=== PATIENT | male | born 1970 | race Caucasian/White ===

== ENCOUNTER 2022-09-03 10:16 | Outpatient (CLI) | payer OTHER, SELFPAY ==
[2022-09-03 11:43] LABS: Kit Draw Collected
== END 2022-09-03 10:17 | disposition home or self-care (01) ==
LOC: ANHGOSHLAB 10:18
PROVIDERS: PCP Family Medicine; Visit Provider Family Medicine
DX: E78.5 Hyperlipidemia, unspecified (principal); Z79.899 Other long term (current) drug therapy
CPT/HCPCS: 36415

== ENCOUNTER 2024-09-30 12:07 | Observation (INO) | payer OTHER, SELFPAY ==
[2024-09-30] VITALS (15 sets, daily range): BP systolic 108–149; BP diastolic 64–91; PULSE 50–159; RESP 18–20; TEMP 36.8–36.9; O2SAT 97–100; BMI 26.6
--- NOTE | ~2024-09-30 | XR_ITS ---
Portable chest x-ray Comparison: None Clinical History: Chest pain Findings: Lungs are clear, without focal consolidation or pleural effusion. Cardiomediastinal silho uette is unremarkable. Bones and soft tissues are unremarkable. Impression: Normal chest. Reviewed, dictated and finalized at location . Impression: Normal chest.
--- OUTSIDE RECORDS SUMMARY | 2024-09-30 12:09 | XMS_ITS | Referral Summary ---
Author Organization [facility] Address [address] [place] [address] Care Team Providers Care Medical Apparatus Model Maker Name Role Phone Unavailable Primary Care Provider Unavailabl e Source Comments [facility],non-owned Affiliates and Associated Physician Practices is amultiple site organization consisting of ambulatory clinics and hospital sitesin [place], [place], [place] and [place]. This disclosure is being madepursuant to the Care Everywhere program and may not contain all information available regarding this patient. Last updated 18.[facility] Transaction [employer] Social History Tobacco Use Types Packs/Day Years Used Date Smoking Tobacco: Never Assessed Sex and Gender Information Value Date Recorded Sex Assigned at Not on file Gender Identity Not on file Sexual Orientation Not on file Plan of Treatment Not on file
--- OUTSIDE RECORDS SUMMARY | 2024-09-30 12:09 | XMS_ITS | Data Portability ---
Author Organization [place] [facility], [facility], [facility] Address [address] [place] [address] Assessment No assessment recorded. Plan of Treatment Reminders Order Date Submit Date Provider Last Modified By Organization Details Last Modified Time Details Appointments None recorded. Lab None recorded. Referral None recorded. Procedures None recorded. Surgeries None recorded. Imaging None recorded. Medication Orders doxycycline hyclate 100 mg tablet 2022 023 LAURA [facility] [id number], [address] [place] [address], [address], 13:14:31 Patient TargetsNo targets recorded. Patient Instructions Encounter Date Encounter Id Patient Instructions Last Modified By Organization Details Last Modified Time 12/27/2022 [id number] Discharge Instructions Not available 12/27/2022 13:14:30 cuts closed with stitches: care instructions Not available 12/27/2022 13:14:30 Have sutures removed in 10 days. Not available 12/27/2022 13:14:15 Reason for Referral None Reported. Problems Name Problem SNOMED Code Status Onset Date Resolution Date Notes Provider Name and Address Organization Details Recorded Time Laceration - injury [id number] Active 2022 right calf. cut it on a metal door of a pontoon boat ARABELLA Tabares [facility], [facility] 13:11:00 Problem Notes None recorded. Procedures Surgical History Date Name Laterality Status Provider Name and Address Organization Details Recorded Time Laceration Repair1 [place] [address], [place], [address], [facility] 12/27/2022 13:34:33 Imaging Results None recorded. Procedure Notes None recorded. Medical Equipment None Reported. Allergies No known drug allergies Medications Name Sig Start Date Stop Date Status Note LastModified by Organization Details LastModified Time simvastatin 5 mg tablet TAKE 1 TABLET BY MOUTH DAILY active Not Available Not Available No t Available methylprednis olone 4 mg tablets in a dose pack 12/27 completed Not Available Not Available Not Available doxycycline hyclate 100 mg tablet TAKE ONE TABLET BY MOUTH TWICE A DAY FOR 7 DAYS active Not Available Not Available No t Available Vitals Date Recorded Heart rate Respiratory rate Oxygen saturation Oxygen saturation in Arterial blood by Pulse oximetry Body temperature Body height Body weight Systolic blood pressure Diastolic blood pressure Provider Name and Address Organization Details Last Updated DateTime 61 /min 17 /min 99 % 99 % 97.9 [degF] 175.26 cm 33903.5 9 g 146 mm[Hg] 69 mm[Hg] ARABELLA Tabares [facility] 13:10:00 Social History Question Answer Notes LastModified by Organizat ion Details LastModified Time Tobacco Smoking Status Never Smoker ARABELLA [facility]ares [facility] 12/27/2022 13:11:08 In The 14 Days Before Symptom Onset, Have You Had Close Contact With A Laboratory-confirm ed COVID-19 While That Case Was Ill? No Information n ot available 12/27/2022 In The 14 Days Before Symptom Onset, Have You Had Close Contact With A Person Who Is Under Investigation For COVID-19 While That Person Was Ill? No Information not available 12/27/2022 Have You Been To An Area Known To Be High Risk For COVID-19? No Information not available 12/27/2022 Alcohol Use Occasional Information n ot available 12/27/2022 Are You Passively Exposed To Smoke? No Information no t available 12/27/2022 Do You Or Have You Ever Used Any Other Forms Of Tobacco Or Nicotine? No Information not available 12/27/2022 Sex: Unknown Functional Status None recorded. Mental Status None recorded. Family History Nothing Reported. Medical History Condition Response High Cholesterol Y Past Encounters Encounter ID Performer Location Encounter Start Date Encounter Closed Date Diagnosis/Indication Diagnosis SNOMED-CT Code Diagnosis ICD10 Code Diagnosis Note [id number] Gabriele Gillespie MD [facility] [address] [place] [address] 12/27/2022 12:51:16 12/27/2022 13:38:12 Laceration of right lower leg [id number] S81.811A Health Concerns Section Related Observation LastModified by Organization Detai ls LastModified Time None Recorded Concern Status LastModified by Organization Details LastModified Time None Recorded Advance Directives Directive None Recorded Payers Encounter Date Sequence Insurance Name Policy Number Policy Car Covered Member ID Car Member ID Guarantor Name 12/27/2022 1 [facility] [id number] [facility] Notes Date Note Type Note Provider Name and Address Organization Details Recorded Time 12/27/2022 text/html Trauma/InjuryRep ort ed bypatient.Location: right gastroc region Onset/ Duration:1 hour(s) ago Timing:episodic; abrupt onset Mechanism of injurycut on pontoon flange Site of injurypatient was at other at time of injury Post-Traumatic Changes:no changes after event Context:started after injury ; no heavy alcohol consumption; no recreational drug use Quality:open wound Severity:no loss of consciousness; no difficulty breathing; moderate Alleviating factors:nothing gives relief Aggravating factors:nothing makes it worseNotes:Last Td was within 3 [place] [address], [place], [address], [facility], [facility] 12/27/2022 13:34:52
--- OUTSIDE RECORDS SUMMARY | 2024-09-30 12:09 | XMS_ITS | Encounter Summary ---
Author Organization [facility] Address [address] [facility] [facility] [place] [address] Care Team Providers Care Superintendent Renting Managing Name Role Phone Unavailable Primary Care Provider Unavailabl e Encounter Details Date Type Department Care Team (Late st Contact Info) Description 06/08/2019 Lab Requisition [facility] [address] [facility] [place] [address] Jolynn Cintron MD [address] [facility] [address] [place] [address] Social History Tobacco Use Types Packs/Day Years Used Date Smoking Tobacco: Never Assessed Sex and Gender Information Value Date Recorded Sex Assigned at Not on file Gender Identity Not on file Sexual Orientation Not on file documented as of this encounter Plan of Treatment Not on file documented as of this encounter Visit Diagnoses Not on filedocumented in this encounter
--- OUTSIDE RECORDS SUMMARY | 2024-09-30 12:09 | XMS_ITS | Patient Health Summary ---
Author Organization [facility] Address [address] [place] [address] Care Team Providers Care Alkylation Operator Name Role Phone Unavailable Primary Care Provider Unavailabl e Note from [email or web address],non-owned Affiliates and Associated Physician Practices is amultiple site organization consisting of ambulatory clinics and hospital sitesin [place], [place], [place] and [place]. This disclosure is being madepursuant to the Care Everywhere program and may not contain all information available regarding this patient. Last updated 18.[email or web address] Social History Tobacco Use Types Packs/Day Years Used Date Smoking Tobacco: Never Assessed Sex and Gender Information Value Date Recorded Sex Assigned at Not on file Gender Identity Not on file Sexual Orientation Not on file Procedures * DERMATOPATH TECHNICAL REPORT(Performed 06/08/2019) Results * DERMATOPATH TECHNICAL REPORT (06/08/2019 12:00 AM FIBERGLASS TUBE MOLDER) Case Report Dermatopathology Report Case: [id number] Authorizing Provider: Jolynn Cintron MD Collected: 06/08/2019 12:00 AM Ordering Location: [facility] D[facility] Lab Received: 06/08/2019 12:36 PM Pathologist: Jodie Mehta MD Specimen: Skin, left chest 12:45 PM [facility] DERMATOPATHOLOGY LABORATORY Addendum 1 At the request of the diagnosing physician, the technical component for MART-1/Melan A was performed by [facility] Dermatopathology Laboratory. 12:45 PM [facility] DERMATOPATHOLOGY LABORATORY Addendum electronically signed by Jodie Mehta MD on 06/12/2019 at 12:45 PM Clinical History R/O BCC, AK, irritated, non-healing. 9 12:45 PM [facility] DERMATOPATHOLOGY LABORATORY Gross Description Specimen A: Received is one formalin filled container labeled with the patient's name and designated left chest. The specimen consists of a shave measuring [id number]. Jar 0. [facility] Dermatopathology Laboratory performed the technical component only. 12:45 PM [facility] DERMATOPATHOLOGY LABORATORY Embedded Images 12:45 PM [facility] DERMATOPATHOLOGY LABORATORY DISCLAIMER An external and internal positive and negative controls are appropriate for the histochemical, immunohistochemical and immunofluorescence stain(s) in this case (if any), except where stated explicitly. The performance characteristics of the stain(s) cited in this report were developed and its performance characteristic determined by the Dermatopathology Laboratory at [facility], directed by Dr. June Mehta. These tests need not be, and therefore are not, approved by the [place] Food and Drug Administration. The tests are used for clinical purposes. 12:45 PM [facility] DERMATOPATHOLOGY LABORATORY Pathology/Cytolog y TISSUE SPECIMEN FROM SKIN / Unknown 06/08/2019 06/08/2019 12:36 PM FIBERGLASS TUBE MOLDER Jolynn Cintron MD LAB - PATHOLOGY/CYT OLOGY ORDERABLES DERMATOPATHOLOGY LABORATORY [facility] - Department of Dermatology [facility] [facility] [address] 5th Floor Lab B [place], [place] [id number] [place] [address]
--- OUTSIDE RECORDS SUMMARY | 2024-09-30 12:10 | XMS_ITS | Clinical Summary ---
Author Organization [facility] Address [address] [place] [address] Care Team Providers Care Instrumentation And Controls Technician Name Role Phone Unavailable Primary Care Provider Unavailabl e Source Comments [facility],non-owned Affiliates and Associated Physician Practices is amultiple site organization consisting of ambulatory clinics and hospital sitesin [place], [place], [place] and [place]. This disclosure is being madepursuant to the Care Everywhere program and may not contain all information available regarding this patient. Last updated 18.[facility] Social History Tobacco Use Types Packs/Day Years Used Date Smoking Tobacco: Never Assessed Sex and Gender Information Value Date Recorded Sex Assigned at Not on file Gender Identity Not on file Sexual Orientation Not on file Plan of Treatment Health Maintenance Due Date Last Done Comments COLOGUARD (AGES 45-75) - COL ON CA SCREENING 1969 COLON MONITORING 1969 COLONOSCOPY - COLON CA SCREENING 1969 CT COLONOGRAPHY - COLON CA SCREENING 1969 Colorectal Cancer Screening 1969 FIT - COLON CA SCREENING 1969 FLEX SIG - COLON CA SCREENING 1969 LIPID TESTING 1969 HIV SCREENING 02/06/1984 HEPATITIS C SCREENING 02/01/1987 DTAP/TDAP/TD VACCINES (1 - Tdap) 02/06/1988 HEPATITIS B VACCINE (1 of 3 - 19+ 3-dose series) 02/06/1988 PNEUMOCOCCAL VACCINE 50+ (1 of 1 - PCV) 2019 ZOSTER VACCINE (1 of 2) 2019 COVID-19 VACCINE ( - 2023-2 5 season) 2024 INFLUENZA VACCINE (#1) 2024 DEPRESSION SCREENING 07/25/2024 HIB VACCINE Aged Out No longer eligi ble based on patient's age to complete this topic HPV VACCINE Aged Out No longer eligi ble based on patient's age to complete this topic MENINGOCOCCAL (Group B) VACCINE Aged Out No longer eligible based on patient's age to complete this topic MENINGOCOCCAL VACCINE Aged Out No stevenson onofre eligible based on patient's age to complete this topic PNEUMOCOCCAL VACCINE Aged Out No long er eligible based on patient's age to complete this topic
--- OUTSIDE RECORDS SUMMARY | 2024-09-30 12:10 | XMS_ITS | Encounter Summary ---
Author Organization [facility] Address [address] [place] [address] Care Team Providers Care New Car Inspector Name Role Phone Unavailable Primary Care Provider Unavailabl e Encounter Details Date Type Department Care Team (Late st Contact Info) Description 06/08/2019 Lab Requisition [facility] Lab [address] [facility] [place] [id number] Jolynn Cintron MD [address] [facility] [address] [place] [address] Social History Tobacco Use Types Packs/Day Years Used Date Smoking Tobacco: Never Assessed Sex and Gender Information Value Date Recorded Sex Assigned at Not on file Gender Identity Not on file Sexual Orientation Not on file documented as of this encounter Plan of Treatment Not on file documented as of this encounter Procedures Procedure Name Priority Date/Time Associated Diagnosis Comments DERMATOPATH TECHNICAL REPORT Routine 06/08/2019 12:00 AM FRAME COVERER documented in this encounter Results * DERMATOPATH TECHNICAL REPORT (06/08/2019 12:00 AM FRAME COVERER) Case Report Dermatopathology Report Case: [id number] Authorizing Provider: Jolynn Cintron MD Collected: 06/08/2019 12:00 AM Ordering Location: [facility] Lab Received: 06/08/2019 12:36 PM Pathologist: Jodie Mehta MD Specimen: Skin, left chest 9 12:45 PM [facility] DERMATOPATHOLOGY LABORATORY Addendum 1 At the request of the diagnosing physician, the technical component for MART-1/Melan A was performed by [facility] Dermatopathology Laboratory. 9 12:45 PM [facility] DERMATOPATHOLOGY LABORATORY Addendum electronically signed by Jodie Mehta MD on 06/12/2019 at 12:45 PM Clinical History R/O BCC, AK, irritated, non-healing. 12:45 PM [facility] DERMATOPATHOLOGY LABORATORY Gross Description Specimen A: Received is one formalin filled container labeled with the patient's name and designated left chest. The specimen consists of a shave measuring [id number]. Jar 0. [facility] Dermatopathology Laboratory performed the technical component only. 12:45 PM [facility] DERMATOPATHOLOGY LABORATORY Embedded Images 12:45 PM [facility] DERMATOPATHOLOGY LABORATORY DISCLAIMER An external and internal positive and negative controls are appropriate for the histochemical, immunohistochemical and immunofluorescence stain(s) in this case (if any), except where stated explicitly. The performance characteristics of the stain(s) cited in this report were developed and its performance characteristic determined by the Dermatopathology Laboratory at [facility], directed by Dr. June Mehta. These tests need not be, and therefore are not, approved by the [place] Food and Drug Administration. The tests are used for clinical purposes. 12:45 PM [facility] DERMATOPATHOLOGY LABORATORY Pathology/Cytolog y TISSUE SPECIMEN FROM SKIN / Unknown 06/08/2019 06/08/2019 12:36 PM FRAME COVERER Jolynn Cintron MD LAB - PATHOLOGY/CYT OLOGY ORDERABLES DERMATOPATHOLOGY LABORATORY [facility] - Department of Dermatology [address] [place] [address], 5th [place] [address], [facility] [phone] documented in this encounter Visit Diagnoses Not on filedocumented in this encounter
--- NOTE | 2024-09-30 12:11 | ECG_ITS ---
Test Date: 2024-09-30 12:14:52 Measurements Intervals Shipman Rate: 157 P: 0 WA: 0 QRS: 69 QRSD: 75 T: 39 QT: 261 QTc: 422 Interpretive Statements ATRIAL FIBRILLATION WITH RAPID VENTRICULAR RESPONSE POSSIBLE RIGHT VENTRICULAR CONDUCTION DELAY [RSR (QR) IN V1/V2] MODERATE ST DEPRESSION [0.05+ mV ST DEPRESSION] CRITICAL TEST RESULT No previous ECG available for comparison Electronically Signed On 10-01-2024 11:12:24 CDT by Trent Gao M.D.
--- NOTE | 2024-09-30 12:21 | ED.CHESTPAIN ---
HPI - Chest Pain General Chief Complaint: Chest Pain Stated Complaint: Fluttering in chest, feeling weird Time Seen by Provider: 09/30/24 12:20 Source: patient Mode of arrival: ambulatory Limitations: no limitations History of Present Illness HPI narrative: 54 years old white male came to the ED with fluttery feeling in the chest started this morning. History of hyperlipidemia, drink alcohol only over the weekend, denies drug use or abuse. Patient reports shortness of breath with exertion. He denies any fever, chills, nausea vomiting, chest pain, back pain or abdominal pain Related Data Allergies Allergy/AdvReac Type Severity Reaction Status Date / Time No Known Allergies Allergy Verified 09/30/24 12:08 Review of Systems Review of Systems: All systems reviewed & are unremarkable except as noted in HPI and below PMFSH Family History Family History Other Family history of genetic disorder No family history of cardiovascular disease Social History Social History Smoking status: Never smoker Alcohol intake: current Drinks per week: 6 Alcohol use details: Socially on weekends Substance use type: does not use Lack of Transportation: No Lack of Food: Never True Current Housing: I Have Housing Concerned About Future Housing: No Difficulty Paying Gas/Electric Bills: No Difficulty Paying for Meds: No Currently Unemployed: No Education: Bachelor's Degree Difficulty w/ Childcare or Family Care: No Living arrangements: with family Occupation/Education: occupation Additional occupation/education comments: Physical Therapist Exam Narrative: General appearance: Well-developed, well-nourished Skin: Normal color Head: Normocephalic, nontraumatic Eyes: Clear conjunctiva ENT: Oropharynx normal, ears normal, nose normal Neck: Supple, nontender Chest and respiratory: Airway patent, no respiratory distress, no accessory muscle use Heart: Tachycardia, irregular irregularity Abdomen: Soft, nontender, no organomegaly, quiet bowel sounds Vascular: Normal peripheral pulses, normal capillary refill. Musculoskeletal: Normal range of motion, nontender back Neurologic: Alert and oriented ?3, DRAPERY COUNSELOR is normal as tested, no gross motor deficit Course Vital Signs Vital signs: Vital Signs Temperature 36.9 C 09/30/24 12:09 Pulse Rate 142 H 09/30/24 12:09 Respiratory Rate 18 09/30/24 12:09 Blood Pressure 149/90 H 09/30/24 12:09 Pulse Oximetry 100 09/30/24 12:09 Temperature 36.9 C 09/30/24 12:09 Pulse Rate 124 H 09/30/24 12:40 Respiratory Rate 19 09/30/24 12:40 Blood Pressure 117/85 09/30/24 12:40 Pulse Oximetry 98 09/30/24 12:40 Oxygen Delivery Room Air 09/30/24 12:19 MDM - Chest Pain MDM Narrative Medical decision making narrative: Patient presents with new onset AFib with RVR Vital signs showing heart rate of 142 irregular irregularity Physical examination cleaner assistant was tachycardia otherwise insignificant Differential diagnosis AFib with RVR secondary to extra caffeine, stress, lack of sleep, valvular abnormality, hyperthyroidism. Less likely coronary artery disease Blood workup today includes CBC, CMP, troponin, BNP, TSH showed no acute abnormalities CHEST X-RAY SHOWED NO ACUTE ABNORMALITIES EKG ON ARRIVAL SHOWED AFIB WITH RVR PATIENT STARTED ON CARDIZEM BOLUS AND DRIP, LOVENOX, ADMIT TO HOSPITALIST Differential Diagnosis Differential diagnosis: Likely other ( ABOVE) Medical Records Data Attestation: I reviewed the patient's medical records. Lab Data Attestation: I reviewed the patient's lab results. 09/30/24 12:21 09/30/24 12:21 Labs: Lab Results 09/30/24 Range/Units 12:21 WBC 5.4 (4.5-10.0) K/mm3 RBC 4.62 (4.6-6.20) M/mm3 Hgb 15.0 (14.0-18.0) g/dL Hct 45.5 (42.0-52.0) % MCV 98.5 (80-100) fl MCH 32.5 (26-34) pg MCHC 33.0 (32-36) g/dl RDW 12.3 (11.5-14.5) % Plt Count 254 (150-375) k/mm3 MPV 9.4 (7.4-10.4) fl Immature Gran % (Auto) 0.2 (0-0.5) % Neut % (Auto) 45.2 L (45.5-73.1) % Lymph % (Auto) 41.5 (18.3-44.2) % Atlantic % (Auto) 9.9 H (2.6-8.5) % Eos % (Auto) 2.1 (0-4.4) % Baso % (Auto) 1.1 (0.2-1.2) % Lymph # (Auto) 2.22 (0.9-3.2) K/mm3 Atlantic # (Auto) 0.5 (0.1-0.6) K/mm3 Eos # (Auto) 0.1 (0-0.3) K/mm3 Baso # (Auto) 0.1 (0.0-0.1) K/mm3 Abs Immat Gran (auto) 0.01 (0.00-0.031) K/mm3 Absolute Neuts (auto) 2.4 (1.3-6.7) K/mm3 Absolute Nucleated RBC 0.000 (0.0-0.012) K/mm3 Nucleated RBC % 0.0 (0.0-0.2) % PT 13.1 (11.1-14.7) Seconds INR 1.0 APTT 23.5 (22.3-36.8) Seconds Sodium 139 (137-145) mmol/L Potassium 4.4 (3.4-5.0) mmol/L Chloride 102 (98-107) mmol/L Carbon Dioxide 28 (22-30) mmol/L Anion Gap 9 (4-12) mmol/L BUN 17 (9-20) mg/dL Creatinine 0.92 (0.7-1.3) mg/dL Estim Creat Clear Calc 77 ml/min Estimated GFR > 60 (59 - ) Glucose 93 (65-110) mg/dL Calcium 9.5 (8.4-10.2) mg/dL Total Bilirubin 0.7 (0.2-1.3) mg/dL AST 47 (17-59) U/L ALT 37 (6-50) U/L Alkaline Phosphatase 84 (38-126) U/L Troponin I < 0.012 (0.000-0.034) ng/mL NT-Pro-B Natriuret Pep 143 H (19.9-100) pg/mL Total Protein 8.0 (6.3-8.2) g/dL Albumin 4.6 (3.5-5.1) g/dL Lipase 131 (23-300) U/L TSH Pending Imaging Data Radiologist's impression: Impressions Chest X-Ray 09/30/24 12:34 Impression: Normal chest. ECG Data EKG #1: Attestation: I personally reviewed and interpreted this ECG as follows: ECG completion date: 09/30/24 Interpretation: AFIB WITH RVR AT 158 BEATS PER MINUTE Discharge Plan Discharge Clinical Impression: Atrial fibrillation with rapid ventricular response Patient Disposition: Still a Patient Condition: Stable
[2024-09-30 12:30] LABS: Basophils Absolute Auto 0.1 K/mm3 (0.0-0.1); Basophils Percent Auto 1.1 % (0.2-1.2); Eosinophils Absolute Auto 0.1 K/mm3 (0-0.3); Eosinophils Percent Auto 2.1 % (0-4.4); Hematocrit 45.5 % (42.0-52.0); Immature Granulocyte Absolute 0.01 K/mm3 (0.00-0.031); Immature Granulocyte Percent A 0.2 % (0-0.5); Lymphocytes Absolute Auto 2.22 K/mm3 (0.9-3.2); Lymphocytes Percent Auto 41.5 % (18.3-44.2); Mean Corpuscular Hemoglobin 32.5 pg (26-34); Mean Corpuscular Volume 98.5 fl (80-100); Mean Platelet Volume 9.4 fl (7.4-10.4); Monocytes Absolute Auto 0.5 K/mm3 (0.1-0.6); Monocytes Percent Auto 9.9 % (2.6-8.5); Neutrophils Absolute Auto 2.4 K/mm3 (1.3-6.7); Neutrophils Percent Auto 45.2 % (45.5-73.1); Platelet Count Result 254 k/mm3 (150-375); Red Blood Count 4.62 M/mm3 (4.6-6.20); Red Cell Distribution Width 12.3 % (11.5-14.5); White Blood Count 5.4 K/mm3 (4.5-10.0)
[2024-09-30] MEDS: dilTIAZem HCl INJ 25 MG/5 ML VIAL 10 MG IV PUSH ×2 (12:30→12:56)
[2024-09-30] MEDS: dilTIAZem 100 MG/100 ML 100 MG/100 ML BAG IV CONT ×2 (12:31→18:31)
[2024-09-30 12:42] LABS: Alanine Aminotransferase 37 U/L (6-50); Albumin Level 4.6 g/dL (3.5-5.1); Alkaline Phosphatase 84 U/L (38-126); Anion Gap 9 mmol/L (4-12); Aspartate Amino Transferase 47 U/L (17-59); Bilirubin,Total 0.7 mg/dL (0.2-1.3); Blood Urea Nitrogen 17 mg/dL (9-20); Calcium 9.5 mg/dL (8.4-10.2); Carbon Dioxide 28 mmol/L (22-30); Chloride 102 mmol/L (98-107); Estimated CRCL calculation 77 ml/min; Estimated Glomerular Filt Rate > 60; Glucose 93 mg/dL (65-110); Lipase 131 U/L (23-300); Potassium 4.4 mmol/L (3.4-5.0); Sodium 139 mmol/L (137-145)
[2024-09-30 12:43] LABS: Prothrombin Time 13.1 Seconds (11.1-14.7)
[2024-09-30 12:44] LABS: Partial Thromboplastin Time 23.5 Seconds (22.3-36.8)
[2024-09-30 12:53] LABS: Troponin I < 0.012 ng/mL (0.000-0.034)
[2024-09-30] MEDS: ENOXAPARIN 100 MG/ML SYRINGE 90 MG SUB-Q (12:56)
[2024-09-30 14:05] LABS: NT Pro B Type Natriuretic Pept 143 pg/mL (19.9-100)
--- NOTE | 2024-09-30 14:23 | PM.IMHP ---
H&P: HPI History of Present Illness Date/Time: 09/30/24 14:23 Chief Complaint: Palpitations Narrative: 54-year-old male basket mental goal history of hyperlipidemia presents the hospital with palpitations. Lab work in the ED is unremarkable, chest x-ray is unremarkable, EKG shows AFib with RVR rate of 157. Review of Systems Review of Systems: 12 systems were reviewed and are negative except for as per HPI. [facility] Family History Family History Other Family history of genetic disorder No family history of cardiovascular disease Social History Social History Smoking status: Never smoker Alcohol intake: current Drinks per week: 6 Alcohol use details: Socially on weekends Substance use type: does not use Lack of Transportation: No Lack of Food: Never True Current Housing: I Have Housing Concerned About Future Housing: No Difficulty Paying Gas/Electric Bills: No Difficulty Paying for Meds: No Currently Unemployed: No Education: Bachelor's Degree Difficulty w/ Childcare or Family Care: No Living arrangements: with family Occupation/Education: 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 Home Medications and Allergies Home Medications ?Medication ?Instructions ?Recorded ?Confirmed ?Type simvastatin 5 mg tablet See Rx Instructions .Route 04/16/24 09/30/24 Rx .COMPLEX #90 tabs Allergies Allergy/AdvReac Type Severity Reaction Status Date / Time No Known Allergies Allergy Verified 09/30/24 12:08 Vital Signs Vital Signs - 24 hr 09/30/24 12:09 09/30/24 12:19 09/30/24 12:19 Temperature 98.5 F Pulse Rate 142 H 156 H Respiratory Rate 18 Blood Pressure 149/90 H Pulse Oximetry 100 100 Oxygen Delivery Room Air 09/30/24 12:31 09/30/24 12:40 Temperature Pulse Rate 159 H 124 H Respiratory Rate 19 Blood Pressure 128/91 H 117/85 Pulse Oximetry 98 Oxygen Delivery Exam Narrative: General: well appearing, appears stated age. HEENT: normocephalic, atraumatic. Mucous membranes moist. EOMI, PERRLA, bilateral sclera anicteric, no conjunctival injection. Neck supple without JVD, lymphadenopathy, or bruit. Respiratory: clear to ascultation bilaterally. No rales/rhonic/wheezes. Cardiovascular: Regular rate and rhythm, normal S1-S2 upon ascultation. No murmurs, rubs, or clicks. PMI is nondisplaced, capillary refill less than 3 second. Abdomen: Soft, round, no pulsatile masses, nondistended and nontender. No rebound, no guarding. No CVA tenderness, no hepatosplenomegaly. Bowel sounds present to all four quadrants. No high pitch or tinkling sounds, resonant to percussion. Extremities: No cyanosis, clubbing, or edema present. Pulses are palpable 2/2. Active ROM to all four extremities. Neuro: Alert and orientated x 4. PERRLA. Cranial nerves 2-12 intact without focal deficit. Skin: Warm, dry, and intact, without rash, erythema, or lesion. Psych: pleasant, cooperative, normal speech, normal affect, no hallucinations, no dysarthia H&P: Results Labs Labs: Short CBC 09/30/24 Range/Units 12:21 WBC 5.4 (4.5-10.0) K/mm3 Hgb 15.0 (14.0-18.0) g/dL Hct 45.5 (42.0-52.0) % Plt Count 254 (150-375) k/mm3 BMP 09/30/24 12:21 Sodium 139 Potassium 4.4 Chloride 102 Carbon Dioxide 28 BUN 17 Creatinine 0.92 Glucose 93 Calcium 9.5 Cardiac Enzymes 09/30/24 Range/Units 12:21 Troponin I < 0.012 (0.000-0.034) ng/mL Liver Function 09/30/24 Range/Units 12:21 Total Bilirubin 0.7 (0.2-1.3) mg/dL AST 47 (17-59) U/L ALT 37 (6-50) U/L Alkaline Phosphatase 84 (38-126) U/L Albumin 4.6 (3.5-5.1) g/dL Assessment and Plan Assessment and plan (1) Atrial fibrillation with rapid ventricular response: Code(s): I48.91 - Unspecified atrial fibrillation Status: Acute Assessment and Plan: Diltiazem push x2 Diltiazem drip Aspirin (2) Hyperlipidemia: Code(s): E78.5 - Hyperlipidemia, unspecified Status: Acute
[2024-09-30 16:01] LABS: Troponin I 0.033 ng/mL (0.000-0.034)
--- NOTE | 2024-09-30 16:18 | ADMGEN ---
This patient, Jeremi Cramer, was admitted to IMU Room 213-01 at 1558. Patient/family oriented to hospital policies and general routines including ID bracelet, bed and alarms, visiting hours, pain management, procedures, bathroom and other care routines, personal items, smoking policy, room service/diet, and visiting hours. Information on how to activate the Rapid Response Team has been discussed. Patient/Family are encouraged to report perceived risks to care and to ask questions if they do not understand what they are told or what they should do.
--- NOTE | 2024-09-30 17:52 | PM.IMHP ---
H&P: HPI History of Present Illness Date/Time: 09/30/24 17:52 Chief Complaint: Palpitations Narrative: 54 yo male with PMH of Lipid profile who presented to the ER on account of palpitation. Patient noted he woke up this at about 730am today with palpitations, however he went to jog and then started having SOB and lightheadedness which prompted presentation to the ER for proper eval and care. Er eval notable for HR 142, RR 18, BP 149/90, 100% on room air. Labs within normal limits, TSH 1.33. EKG showed Afib with RVR. Started on Cardizem prior to admission Review of Systems Review of Systems: All other systems were reviewed and negative except as noted in the HPI above [facility] Family History Family History (Updated 09/30/24 @ 16:27 by Ferny Hurd RN) Grandparent Diabetes mellitus Heart attack Cancer Mother Cancer Social History Social History Smoking status: Never smoker Alcohol intake: current Drinks per week: 6 Alcohol use details: Socially on weekends Substance use: never Substance use type: does not use Do You Feel Safe in your Home?: Yes Lack of Transportation: No Lack of Food: Never True Current Housing: I Have Housing Concerned About Future Housing: No Difficulty Paying Gas/Electric Bills: No Difficulty Paying for Meds: No Currently Unemployed: No Education: Bachelor's Degree Difficulty w/ Childcare or Family Care: No Living arrangements: with family 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 Meds Home Medications and Allergies Home Medications ?Medication ?Instructions ?Recorded ?Confirmed ?Type simvastatin 5 mg tablet 5 mg PO HS 09/30/24 09/30/24 History Allergies Allergy/AdvReac Type Severity Reaction Status Date / Time No Known Allergies Allergy Verified 09/30/24 12:08 Vital Signs Vital Signs - 24 hr 09/30/24 12:09 09/30/24 12:19 09/30/24 12:19 Temperature 98.5 F Pulse Rate 142 H 156 H Respiratory Rate 18 Blood Pressure 149/90 H Pulse Oximetry 100 100 Oxygen Delivery Room Air 09/30/24 12:31 09/30/24 12:40 09/30/24 14:52 Temperature Pulse Rate 159 H 124 H 103 H Respiratory Rate 19 18 Blood Pressure 128/91 H 117/85 116/89 Pulse Oximetry 98 98 Oxygen Delivery 09/30/24 15:49 09/30/24 16:21 09/30/24 17:23 Temperature Pulse Rate 94 94 94 Respiratory Rate 18 Blood Pressure 137/83 Pulse Oximetry 100 Oxygen Delivery Exam Narrative: General: alert and comfortable Eyes: EOMI, PERRLA ENNT External ears normal, Neck is supple, no masses, Respiratory systems: Clear to auscultation Cardiovascular S1, S2, normal rhythm, no murmur, rub, or gallop; no thrill or palpable murmurs on palpation. Gastrointestinal: soft, non-tender, and non-distended abdomen with no masses; BS present Skin: no rash, lesions, ulcerations, subcutaneous nodules or induration Musculoskeletal: no abnormality and no tenderness, normal ROM Neurologic: Alert and oriented x3, non focal Mental Status Exam: normal affect H&P: Results Labs Labs: Short CBC 09/30/24 Range/Units 12:21 WBC 5.4 (4.5-10.0) K/mm3 Hgb 15.0 (14.0-18.0) g/dL Hct 45.5 (42.0-52.0) % Plt Count 254 (150-375) k/mm3 BMP 09/30/24 12:21 Sodium 139 Potassium 4.4 Chloride 102 Carbon Dioxide 28 BUN 17 Creatinine 0.92 Glucose 93 Calcium 9.5 Cardiac Enzymes 09/30/24 09/30/24 Range/Units 12:21 15:23 Troponin I < 0.012 0.033 D (0.000-0.034) ng/mL Liver Function 09/30/24 Range/Units 12:21 Total Bilirubin 0.7 (0.2-1.3) mg/dL AST 47 (17-59) U/L ALT 37 (6-50) U/L Alkaline Phosphatase 84 (38-126) U/L Albumin 4.6 (3.5-5.1) g/dL Assessment and Plan Assessment and plan (1) Atrial fibrillation with rapid ventricular response: Code(s): I48.91 - Unspecified atrial fibrillation Status: Acute Plan Atrial fibrillation with RVR Presented with palpitations EKG showed afib RVR Continue Cardizem Infusion, on full dose Lovenox TSH wnl, ECHO Cardiology consulted from the ER Hyperlipidemia on Simvastatin Continue DVT prophylaxis on Full dose Lovenox Full code Surrogate decision maker , Mario Cramer Hospitalist MIPS Advance Care Plan I have confirmed that the patient's Advanced Care Plan is present, code status is documented, or surrogate decision maker is listed in patient medical record.: Yes Medication Reconciliation I have utilized all available resources to obtain, update and review the patients current medications (includes all prescriptions, OTC, herbals, cannabis, and nutritional supplements).: Yes
[2024-09-30 19:28] LABS: Troponin I 0.021 ng/mL (0.000-0.034)
[2024-09-30] MEDS: SIMVASTATIN 5 MG TABLET PO (22:04)
--- NOTE | 2024-09-30 23:15 | ECG_ITS ---
Test Date: 2024-09-30 23:21:54 Measurements Intervals [place] Rate: 52 P: 61 CO: 179 QRS: 65 QRSD: 92 T: 54 QT: 434 QTc: 405 Interpretive Statements SINUS BRADYCARDIA Compared to ECG 09/30/2024 12:14:52 Atrial fibrillation no longer present ST (T wave) deviation no longer present Electronically Signed On 10-01-2024 11:32:01 CDT by Trent Gao M.D.
[2024-10-01] VITALS (11 sets, daily range): BP systolic 111–118; BP diastolic 60–75; PULSE 53–69; RESP 18; TEMP 36.4–36.8; O2SAT 100
--- NOTE | 2024-10-01 | ECHO_ITS ---
Patient Info Name: Jeremi Cramer Age: 54 years : 1970 Gender: Male Ht: 70 in Wt: 179 lbs BSA: 2.01 m2 HR: 59 bpm BP: 108 / 64 mmHg Technical Quality: Good Exam Date: 10/01/2024 10:08 AM Exam Location: Echo Lab Patient Status: Inpatient Admit Date: 09/30/2024 Staff Ordering Physician: Dilshad Feliciano MD Dat Instructor: Chacha Ahumada RDCS Attending Provider: Dilshad Feliciano MD Exam Type: CA echo doppler color flow Study Info Indications - A-fib Complete two-dimensional, color flow and Doppler transthoracic echocardiogram is performed. Summary 1. Complete two-dimensional, color flow and Doppler transthoracic echocardiogram is performed. 2. Left ventricular chamber dimension is normal. 3. Left ventricular systolic function is normal, estimated at 60-65%. 4. The left ventricular diastolic function is normal. 5. E/e' 5 is not elevated. 6. There is trace mitral valve regurgitation. 7. There is trace tricuspid valve regurgitation. 8. No pulmonary hypertension, estimated pulmonary arterial systolic pressure is 27 mmHg. Left Ventricle E/e' 5 is not elevated. Left ventricular chamber dimension is normal. Left ventricular systolic function is normal, estimated at 60-65%. The left ventricular diastolic function is normal. Right Ventricle Right ventricular systolic function is normal and with normal TAPSE 2.1 cm. Right ventricular chamber dimension is normal. Left Atria Left atrial chamber dimension is normal. Right Atria Right atrial chamber dimension is normal. Aortic Valve The aortic valve is trileaflet. There is no aortic valve stenosis. There is no aortic valve regurgitation. Pulmonic Valve There is no pulmonic regurgitation. Mitral Valve There is no mitral valve stenosis. There is trace mitral valve regurgitation. Tricuspid Valve There is trace tricuspid valve regurgitation. No pulmonary hypertension, estimated pulmonary arterial systolic pressure is 27 mmHg. Pericardium/Pleural There is no pericardial effusion. Inferior Vena Cava Normal inferior vena cava with >50% collapse upon inspiration consistent with normal right atrial pressure, 5 mmHg. Aorta The aortic root size at the sinus of Valsalva is normal. Left Ventricular Outflow Tract Name Value Normal LVOT 2D LVOT Diameter 2.0 cm LVOT Doppler LVOT Peak Gradient 3 mmHg LVOT Mean Gradient 2 mmHg LVOT VTI 18 cm LVOT VTI/AV VTI Ratio 0.9 LVOT Stroke Volume 54 ml LVOT CO 11.0 l/min LVOT CI 5.5 l/min/m2 Pulmonic Valve Name Value Normal PV Doppler PV Peak Gradient 4 mmHg Mitral Valve Name Value Normal MV Doppler MV Decel Chaves 126 cm/s2 MV PHT 117 ms MV Area (PHT) 1.9 cm2 4.0-5.0 MV Diastolic Function MV E Peak Velocity 51 cm/s MV A Peak Velocity 39 cm/s MV E/A 1.3 MV Decel Time 403 ms MV Annular TDI MV E/e' (Septal) 5.0 <=8.0 MV E/e' (Lateral) 5.5 <=8.0 MV E/e' (Average) 5.2 Tricuspid Valve Name Value Normal TV Regurgitation Doppler TR Peak Velocity 234 cm/s TR Peak Gradient 14 mmHg Estimated PAP/RSVP RA Pressure 5 mmHg <=5 PA Systolic Pressure 27 mmHg <36 RV Systolic Pressure 27 mmHg <36 Aorta Name Value Normal Ascending Aorta Ao Root Diameter (MM) 3.2 cm Ao Root Diam Index (MM) 1.6 cm/m2 Aortic Valve Name Value Normal AV Doppler AV Peak Velocity 95 cm/s AV Peak Gradient 4 mmHg AV Mean Gradient 2 mmHg AV VTI 20 cm AV Area (Cont Eq VTI) 2.7 cm2 >=3.0 AV Area (Cont Eq Thomas) 2.7 cm2 AV Regurgitation 2D LVOT Area 3.1 cm2 Ventricles Name Value Normal LV Dimensions 2D/MM IVS Diastolic Thickness (2D) 1.0 cm 0.6-1.0 LVID Diastole (2D) 5.0 cm 4.2-5.8 LVIW Diastolic Thickness (2D) 0.9 cm 0.6-1.0 LVID Systole (2D) 3.3 cm 2.5-4.0 LVOT Diameter 2.0 cm LV Mass (2D Cubed) 171.91 g 88.00-224.00 LV Mass Index (2D Cubed) 85 g/m2 49-115 Relative Wall Thickness (2D) 0.37 LV Fractional Shortening/Ejection Fraction 2D/MM LV Fractional Shortening (2D) 35 % 25-43 LV EF (2D Teicholz) 63 % 52-72 LV Diastolic Volume (4C MOD) 101 ml LV EF (4C MOD) 58 % LV Diastolic Volume (2C MOD) 92 ml LV EF (2C MOD) 59 % LV Diastolic Volume (BP MOD) 99 ml 62-150 LV Diastolic Volume Index (BP MOD) 49 ml/m2 34-74 LV Systolic Volume (BP MOD) 40 ml 21-61 LV Systolic Volume Index (BP MOD) 20 ml/m2 11-31 LV EF (BP MOD) 59 % 52-72 LV Diastolic Length (4C) 8.2 cm LV Systolic Length (4C) 6.5 cm LV Stroke Volume (4C MOD) 58 ml Atria Name Value Normal LA Dimensions LA Dimension (MM) 3.1 cm 3.0-4.1 LA Volume (4C A-L) 43 ml LA Volume (BP A-L) 49 ml RA Dimensions RA Area (4C) 19.7 cm2 <=18.0 Report Signatures
[2024-10-01] MEDS: ENOXAPARIN 100 MG/ML SYRINGE 85 MG SUB-Q ×2 (00:03→12:38)
[2024-10-01 04:37] LABS: Basophils Absolute Auto 0.1 K/mm3 (0.0-0.1); Basophils Percent Auto 1.2 % (0.2-1.2); Eosinophils Absolute Auto 0.2 K/mm3 (0-0.3); Eosinophils Percent Auto 3.8 % (0-4.4); Hematocrit 45.4 % (42.0-52.0); Hemoglobin 14.7 g/dL (14.0-18.0); Immature Granulocyte Absolute 0.02 K/mm3 (0.00-0.031); Immature Granulocyte Percent A 0.4 % (0-0.5); Lymphocytes Absolute Auto 2.79 K/mm3 (0.9-3.2); Lymphocytes Percent Auto 55.1 % (18.3-44.2); Mean Corpuscular HGB Conc 32.4 g/dl (32-36); Mean Corpuscular Hemoglobin 31.9 pg (26-34); Mean Corpuscular Volume 98.5 fl (80-100); Mean Platelet Volume 9.6 fl (7.4-10.4); Monocytes Absolute Auto 0.5 K/mm3 (0.1-0.6); Monocytes Percent Auto 9.1 % (2.6-8.5); Neutrophils Absolute Auto 1.5 K/mm3 (1.3-6.7); Neutrophils Percent Auto 30.4 % (45.5-73.1); Platelet Count Result 228 k/mm3 (150-375); Red Blood Count 4.61 M/mm3 (4.6-6.20); Red Cell Distribution Width 12.2 % (11.5-14.5); White Blood Count 5.1 K/mm3 (4.5-10.0)
[2024-10-01 04:50] LABS: Alanine Aminotransferase 31 U/L (6-50); Albumin Level 4.1 g/dL (3.5-5.1); Alkaline Phosphatase 71 U/L (38-126); Anion Gap 8 mmol/L (4-12); Aspartate Amino Transferase 38 U/L (17-59); Bilirubin,Total 0.8 mg/dL (0.2-1.3); Blood Urea Nitrogen 16 mg/dL (9-20); Calcium 8.9 mg/dL (8.4-10.2); Carbon Dioxide 27 mmol/L (22-30); Chloride 104 mmol/L (98-107); Estimated CRCL calculation 82 ml/min; Estimated Glomerular Filt Rate > 60; Glucose 91 mg/dL (65-110); Potassium 4.2 mmol/L (3.4-5.0); Sodium 139 mmol/L (137-145)
[2024-10-01] MEDS: METOPROLOL SUCCINATE EXT REL 12.5 MG TABCR PO (12:38)
--- NOTE | 2024-10-01 13:45 | P.CONCA_ITS ---
Assessment and Plan Assessment and plan (1) Atrial fibrillation with rapid ventricular response: Code(s): I48.91 - Unspecified atrial fibrillation Status: Acute Plan 54-year-old man with hyperlipidemia presented with palpitations admitted for atrial fibrillation with rapid ventricular rates Paroxysmal atrial fibrillation -can discharge home on Toprol 12.5 mg p.o. daily -we discussed the pathophysiology and etiology is atrial fibrillation -we also discussed the approach to treatment and want to pursue rate and rhythm control -we also discussed antiarrhythmic therapies as well as catheter ablation therapies and some the indications as well as expectations of each therapy choice -we discussed the utility of anticoagulation and given his chads Vasc score of 0, current bleeding risk of anticoagulation outweighs the benefits -all questions were answered Patient will follow-up with me in clinic in a month History of Present Illness History of Present Illness Consult date/time: 10/01/24 13:45 Requesting physician: Dilshad Feliciano MD Consult reason: atrial fibrillation Reason For Visit: New onset of AFib with RVR Narrative: 54-year-old man with hyperlipidemia presented with palpitations. He woke up in the morning with the dictations that worsened with his morning run. After is run, he proceeded to the gym to do squats when he started to feel lightheaded which is unusual for him. At this time he consulted with his who also felt that his heart rate was very fast. Together they decide to proceed to the emergency room for further evaluation where he was found to have atrial fibrillation with rapid ventricular rate for which a diltiazem drip was started and he spontaneously converted to sinus rhythm Review of Systems 2 Cardiovascular: Cardiovascular: Reports as per HPI Respiratory: Respiratory: Reports as per HPI [facility] Family History Family History (Updated 09/30/24 @ 16:27 by Ferny Hurd RN) Grandparent Diabetes mellitus Heart attack Cancer Mother Cancer Social History Social History Smoking status: Never smoker Alcohol intake: current Drinks per week: 6 Alcohol use details: Socially on weekends Substance use: never Substance use type: does not use Do You Feel Safe in your Home?: Yes Lack of Transportation: No Lack of Food: Never True Current Housing: I Have Housing Concerned About Future Housing: No Difficulty Paying Gas/Electric Bills: No Difficulty Paying for Meds: No Currently Unemployed: No Education: Bachelor's Degree Difficulty w/ Childcare or Family Care: No Living arrangements: with family 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 Meds Home Medications and Allergies Home Medications ?Medication ?Instructions ?Recorded ?Confirmed ?Type simvastatin 5 mg tablet 5 mg PO HS 09/30/24 09/30/24 History Allergies Allergy/AdvReac Type Severity Reaction Status Date / Time No Known Allergies Allergy Verified 09/30/24 12:08 Vital Signs Vital Signs - 24 hr 09/30/24 14:52 09/30/24 15:49 09/30/24 16:21 Temperature Pulse Rate 103 H 94 94 Respiratory Rate 18 18 Blood Pressure 116/89 137/83 Pulse Oximetry 98 100 Oxygen Delivery 09/30/24 17:23 09/30/24 18:31 09/30/24 20:00 Temperature Pulse Rate 94 84 76 Respiratory Rate Blood Pressure Pulse Oximetry Oxygen Delivery 09/30/24 20:27 09/30/24 20:27 09/30/24 22:00 Temperature 36.8 C Pulse Rate 66 76 69 Respiratory Rate 20 Blood Pressure 111/69 111/69 120/76 Pulse Oximetry 100 99 Oxygen Delivery 09/30/24 22:00 09/30/24 22:00 09/30/24 22:00 Temperature Pulse Rate 66 66 Respiratory Rate Blood Pressure 120/76 Pulse Oximetry Oxygen Delivery Room Air 09/30/24 23:08 09/30/24 23:25 09/30/24 23:58 Temperature 36.9 C Pulse Rate 69 50 L 54 L Respiratory Rate 18 Blood Pressure 108/64 Pulse Oximetry 97 Oxygen Delivery 10/01/24 00:00 10/01/24 00:05 10/01/24 02:00 Temperature Pulse Rate 53 L 55 L Respiratory Rate Blood Pressure Pulse Oximetry Oxygen Delivery Room Air 10/01/24 03:34 10/01/24 04:00 10/01/24 04:00 Temperature 36.4 C Pulse Rate 64 64 Respiratory Rate 18 Blood Pressure 118/60 Pulse Oximetry 100 Oxygen Delivery Room Air 10/01/24 06:00 10/01/24 06:22 10/01/24 08:00 Temperature Pulse Rate 55 L 56 L 61 Respiratory Rate Blood Pressure Pulse Oximetry Oxygen Delivery 10/01/24 08:00 10/01/24 08:11 10/01/24 10:00 Temperature 36.8 C Pulse Rate 63 59 L Respiratory Rate 18 Blood Pressure 116/69 Pulse Oximetry 100 Oxygen Delivery Room Air 10/01/24 11:06 10/01/24 12:00 10/01/24 12:00 Temperature 36.4 C L Pulse Rate 64 69 Respiratory Rate 18 Blood Pressure 111/75 Pulse Oximetry 100 Oxygen Delivery Room Air Exam 2 Const: General: comfortable HENMT: Mouth: Yes moist mucous membranes Eyes: EOM: EOMs intact bilaterally Neck: Neck: no JVD Resp: Effort & Inspection: normal respiratory effort Auscultation: clear to auscultation bilaterally Cardio: Rate: regular rate Rhythm: regular rhythm GI: GI Palp: Yes Soft to palpation Neuro: Speech: normal speech Extrem: General: no pedal edema Results Labs and Meds 10/01/24 04:13 10/01/24 04:13 Lab results: Cardiac Enzymes 09/30/24 09/30/24 10/01/24 Range/Units 15:23 18:52 04:13 AST 38 (17-59) U/L Troponin I 0.033 D 0.021 D (0.000-0.034) ng/mL CBC 10/01/24 Range/Units 04:13 WBC 5.1 (4.5-10.0) K/mm3 RBC 4.61 (4.6-6.20) M/mm3 Hgb 14.7 (14.0-18.0) g/dL Hct 45.4 (42.0-52.0) % Plt Count 228 (150-375) k/mm3 Lymph # (Auto) 2.79 (0.9-3.2) K/mm3 [place] # (Auto) 0.5 (0.1-0.6) K/mm3 Eos # (Auto) 0.2 (0-0.3) K/mm3 Baso # (Auto) 0.1 (0.0-0.1) K/mm3 Comprehensive Metabolic Panel 10/01/24 Range/Units 04:13 Sodium 139 (137-145) mmol/L Potassium 4.2 (3.4-5.0) mmol/L Chloride 104 (98-107) mmol/L Carbon Dioxide 27 (22-30) mmol/L BUN 16 (9-20) mg/dL Creatinine 0.92 (0.7-1.3) mg/dL Glucose 91 (65-110) mg/dL Calcium 8.9 (8.4-10.2) mg/dL AST 38 (17-59) U/L ALT 31 (6-50) U/L Alkaline Phosphatase 71 (38-126) U/L Total Protein 7.0 (6.3-8.2) g/dL Albumin 4.1 (3.5-5.1) g/dL Intake and Output 09/30/24 10/01/24 10/01/24 23:59 07:59 15:59 Intake Total 224.6 450 120 Output Total 1200 Balance 224.6 -750 120 Intake: IV 24.6 dilTIAZem 100 MG/100 ML 100 mg 24.6 In 100 ml @ 0 MG/HR IV CONT . Q0M [facility] Rx#:[id number] Oral 200 450 120 Output: Urine 1200 Other: # Unmeasured Voids 3 Patient Weight 10/01/24 23:59 Weight 81.6 kg
--- NOTE | 2024-10-01 13:49 | P.DS_ITS ---
DS: Admitting Diagnosis Discharge Date 10/01/24 Admitting Diagnosis Palpitation s DS: Discharge Diagnosis Discharge Diagnosis (1) Atrial fibrillation with rapid ventricular response: Code(s): I48.91 - Unspecified atrial fibrillation Status: Acute DS: Summary Hospital Course Hospital Course: 54 yo male with PMH of Lipid profile who presented to the ER on account of palpitation. Patient noted he woke up this at about 730am today with palpitations, however he went to jog and then started having SOB and lightheadedness which prompted presentation to the ER for proper eval and care. Er eval notable for HR 142, RR 18, BP 149/90, 100% on room air. Labs within normal limits, TSH 1.33. EKG showed Afib with RVR. Started on Cardizem prior to admission Patient converted spontaneously to NSR, ECHO showed normal exam, cardiology evaluated and recommended metoprolol 12.5mg and will follow up outpatient F/u with PCP in 3-5 days F/u with cardiology as instructed Time Spent with Patient Time attestation: Total time spent providing and/or coordinating discharge services: DS: Data Data Completed and Pending Labs on day of discharge: Labs from last 24 hours 10/01/24 09/30/24 09/30/24 04:13 18:52 15:23 WBC 5.1 RBC 4.61 Hgb 14.7 Hct 45.4 MCV 98.5 MCH 31.9 MCHC 32.4 RDW 12.2 Plt Count 228 MPV 9.6 Immature Gran % (Auto) 0.4 Neut % (Auto) 30.4 L Lymph % (Auto) 55.1 H Haines % (Auto) 9.1 H Eos % (Auto) 3.8 Baso % (Auto) 1.2 Lymph # (Auto) 2.79 [place] # (Auto) 0.5 Eos # (Auto) 0.2 Baso # (Auto) 0.1 Abs Immat Gran (auto) 0.02 Absolute Neuts (auto) 1.5 Absolute Nucleated RBC 0.000 Nucleated RBC % 0.0 Sodium 139 Potassium 4.2 Chloride 104 Carbon Dioxide 27 Anion Gap 8 BUN 16 Creatinine 0.92 Estim Creat Clear Calc 82 Estimated GFR > 60 Glucose 91 Calcium 8.9 Magnesium 2.0 Total Bilirubin 0.8 AST 38 ALT 31 Alkaline Phosphatase 71 Troponin I 0.021 D 0.033 D NT-Pro-B Natriuret Pep Total Protein 7.0 Albumin 4.1 TSH 09/30/24 12:21 WBC RBC Hgb Hct MCV MCH MCHC RDW Plt Count MPV Immature Gran % (Auto) Neut % (Auto) Lymph % (Auto) [place] % (Auto) Eos % (Auto) Baso % (Auto) Lymph # (Auto) [place] # (Auto) Eos # (Auto) Baso # (Auto) Abs Immat Gran (auto) Absolute Neuts (auto) Absolute Nucleated RBC Nucleated RBC % Sodium Potassium Chloride Carbon Dioxide Anion Gap BUN Creatinine Estim Creat Clear Calc Estimated GFR Glucose Calcium Magnesium Total Bilirubin AST ALT Alkaline Phosphatase Troponin I NT-Pro-B Natriuret Pep 143 H Total Protein Albumin TSH 1.330 Discharge Plan Discharge Attending physician on discharge: Dilshad Feliciano Consulting providers: Kristina Glass Discharging Clinician: Dilshad Feliciano Anticipated Discharge Date/Time: 10/01/24 13:45 Patient Disposition: Home, Self-Care Activity: as tolerated Diet: regular Patient Instructions: Antibiotic Form, A-fib (Atrial Fibrillation) (DC) Patient Language: [place]e Stand Alone Forms: General Discharge Information Follow-up/Referrals: Kristina Glass, HARJINDER-C [Advanced Practice Nurse] - (F/u with cardiology as instructed ) Chaya Eckert DO [Primary Care Provider] - (F/u with PCP on 3-5 days ) Discharge Medications: No Action simvastatin 5 mg tablet 5 mg PO HS Rx Instructions: TAKE ONE TABLET (5 MG) ORALLY hs Date of admission: 09/30/24 13:15 Primary Care Provider: Chaya Eckert Admitting Provider: Julio Kolb Attending physician on admission: Dilshad Feliciano Condition: Stable
== END 2024-10-01 15:26 | disposition home or self-care (01) ==
LOC: ANHED 12:26 → ANHIMU 13:54
PROVIDERS: Admitting Provider Family Medicine; Emergency Provider Emergency Medicine; PCP Family Medicine; Visit Provider Internal Medicine
DX: I48.91 Unspecified atrial fibrillation (principal); E78.5 Hyperlipidemia, unspecified
CPT/HCPCS: 36415; 71045; 80053; 83690; 83735; 83880; 84443; 84484; 85025; 85610; 85730; 93005; 93306; 96365; 96366; 96372; 96374; 96375; 99285; A9270; G0378; J1650

== ENCOUNTER 2025-05-24 01:08 | Day surgery (SDC) | payer OTHER, SELFPAY ==
[2025-05-15 15:38] VITALS: BMI 27.1
--- OUTSIDE RECORDS SUMMARY | 2025-05-24 01:12 | XMS_ITS | Encounter Summary ---
Author Organization [facility] Address [address] [place] [address] Care Team Providers Care Prosthetic Dentist Name Role Phone Unavailable Primary Care Provider Unavailabl e Encounter Details Date Type Department Care Team (Late st Contact Info) Description 06/08/2019 Lab Requisition [facility] [address] [facility], [place] [id number] Jolynn Cintron MD [address] [facility] [address] [place] [address] Social History Tobacco Use Types Packs/Day Years Used Date Smoking Tobacco: Never Assessed Sex and Gender Information Value Date Recorded Sex Assigned at Not on file 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
--- OUTSIDE RECORDS SUMMARY | 2025-05-24 01:12 | XMS_ITS | Encounter Summary ---
Author Organization [facility] Address [address] [place] [address] Care Team Providers Care Alternative Energy Technician Name Role Phone Unavailable Primary Care Provider Unavailabl e Encounter Details Date Type Department Care Team (Late st Contact Info) Description 06/08/2019 Lab Requisition [facility] [address] [facility], [place] [id number] Jolynn Cintron MD [address] [facility] [address] [place] [address] Social History Tobacco Use Types Packs/Day Years Used Date Smoking Tobacco: Never Assessed Sex and Gender Information Value Date Recorded Sex Assigned at Not on file 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 Gender Identity Not on file Sexual Orientation Not on file documented as of this encounter Plan of Treatment Not on file documented as of this encounter Procedures Procedure Name Priority Date/Time Associated Diagnosis Comments DERMATOPATH TECHNICAL REPORT Routine 06/08/2019 12:00 AM TRANSIT OPERATOR documented in this encounter Results * DERMATOPATH TECHNICAL REPORT (06/08/2019 12:00 AM TRANSIT OPERATOR) Case Report Dermatopathology Report Case: [id number] Authorizing Provider: Jolynn Cintron MD Collected: 06/08/2019 12:00 AM Ordering Location: [facility] Received: 06/08/2019 12:36 PM Pathologist: Jodie Mehta MD Specimen: Skin, left chest 9 12:45 PM TRANSIT OPERATOR DERMATOPATHOLOGY LABORATORY Addendum 1 At the request of the diagnosing physician, the technical component for MART-1/Melan A was performed by [facility] Dermatopathology Laboratory. 9 12:45 PM TRANSIT OPERATOR DERMATOPATHOLOGY LABORATORY Addendum electronically signed by Jodie Mehta MD on 06/12/2019 at 1245 TRANSIT OPERATOR Clinical History R/O BCC, AK, irritated, non-healing. 12:45 PM TRANSIT OPERATOR DERMATOPATHOLOGY LABORATORY Gross Description Specimen A: Received is one formalin filled container labeled with the patient's name and designated left chest. The specimen consists of a shave measuring [id number]. Jar 0. [facility]ermatopathology [facility] performed the technical component only. 12:45 PM [facility] DERMATOPATHOLOGY LABORATORY Embedded Images 12:45 PM [facility] DERMATOPATHOLOGY LABORATORY DISCLAIMER An external and internal positive and negative controls are appropriate for the histochemical, immunohistochemical and immunofluorescence stain(s) in this case (if any), except where stated explicitly. The performance characteristics of the stain(s) cited in this report were developed and its performance characteristic determined by the Dermatopathology Laboratory at [facility], directed by Dr. June Mehta. These tests need not be, and therefore are not, approved by the [place] Food and Drug Administration. The tests are used for clinical purposes. 12:45 PM [facility] DERMATOPATHOLOGY LABORATORY at 1339 TRANSIT OPERATOR Pathology/Cytolog y TISSUE SPECIMEN FROM SKIN / Unknown 06/08/2019 06/08/2019 12:36 PM TRANSIT OPERATOR Jolynn Cintron MD LAB - PATHOLOGY/CYTOLOGY OR DERABLES Edited Result - Final DERMATOPATHOLOGY LABORATORY [facility] - Department of Dermatology [address] [place] [address] [address] [place] [address], [facility] [phone] documented in this encounter Visit Diagnoses Not on filedocumented in this encounter
--- OUTSIDE RECORDS SUMMARY | 2025-05-24 01:12 | XMS_ITS | Data Portability ---
Author Organization [place] - [facility], [facility], [facility] Address [address] [facility] [address] [place] [address] Assessment No assessment recorded. Plan of Treatment Reminders Order Date Submit Date Provider Last Modified By Organization Details Last Modified Time Details Appointments None recorded. Lab None recorded. Referral None recorded. Procedures None recorded. Surgeries None recorded. Imaging None recorded. Medication Orders doxycycline hyclate 100 mg tablet 2022 [address] [employer] [id number] Nahed Murrell, [address] [place] [address], [address], 13:14:31 Patient TargetsNo targets recorded. Patient Instructions Encounter Date Encounter Id Patient Instructions Last Modified By Organization Details Last Modified Time 12/27/2022 [id number] Discharge Instructions Not available 12/27/2022 13:14:30 cuts closed with stitches: care instructions Not available 12/27/2022 13:14:30 Have sutures removed in 10 days. Not available 12/27/2022 13:14:15 Reason for Referral None Reported. Problems Name Problem SNOMED Code Status Onset Date Resolution Date Notes Provider Name and Address Organization Details Recorded Time Laceration - injury [id number] Active 2022 right calf. cut it on a metal door of a pontoon boat [facility] 13:11:00 Problem Notes None recorded. Procedures Surgical History Date Name Laterality Status Provider Name and Address Organization Details Recorded Time Laceration Repair1 [place] [address], [place], [address], [facility] 12/27/2022 13:34:33 Imaging Results None recorded. Procedure [...] Body temperature Body height Body weight Systolic And Diastolic Provider Name and Address Organization Details Last Updated DateTime 61 /min 17 /min 99 % 99 % 97.9 [degF] 175.26 cm 10054.5 9 g 146/69 mm[Hg] ARABELLA [facility] 13:10:00 Social History Question Answer Notes LastModified by Organizat ion Details LastModified Time Tobacco Smoking Status Never Smoker [facility] 12/27/2022 13:11:08 In The 14 Days [...] Smoke? No Information no t available 12/27/2022 Sex: Unknown Functional Status Question Answer Note LastModified by Organization D etails LastModified Time Do you or have you ever used any other forms of tobacco or nicotine? No Information not available 12/27/2022 Mental Status None recorded. Family History Nothing Reported. Medical History Condition Response High Cholesterol Y Past Encounters Encounter ID Performer Location Encounter Start Date Encounter Closed Date Diagnosis/Indication Diagnosis SNOMED-CT Code Diagnosis ICD10 Code Diagnosis IMO Codes Diagnosis Note [id number] Gabriele Gillespie MD [facility] [address] [place] [address] 12/27/2022 12:51:16 12/27/2022 13:38:12 Laceration of right lower leg [id number] S81.811A Health Concerns Section Related Observation LastModified by Organization Detai ls LastModified Time None Recorded Concern Status LastModified by Organization Details LastModified Time None Recorded Advance Directives Directive None Recorded Payers Insurance Date Sequence Insurance Name Policy Number Policy Car Covered Member ID Car Member ID Guarantor Name 12/27/2022 1 [facility] Shoaib [id number] [facility] Notes Date Note Type Note Provider Name and Address Organization Details Recorded Time 3 text/htm l Trauma/InjuryReported by PatientHPIFor quality, patient reportsopen wound. For alleviating factors, patient reportsnothing gives relief. For onset/ duration, patient reports1 hour(s) ago. For timing, patient reportsepisodicandabrupt onset. For site of injury, patient reportspatient was at other at time of injury. For post-traumatic changes, patient reportsno changes after event. For context, patient reportsno heavy alcohol consumption,no recreational drug use, andstarted after injury __. For severity, patient reportsno loss of consciousness,no difficulty breathing, andmoderate. For aggravating factors, patient reportsnothing makes it worse. For location, (right gastroc region). For mechanism of injury, (cut on pontoon flange).Last Td was within 3 [place] [address], [place], [address], [facility], [facility] 12/27/2022 13:34:52
--- OUTSIDE RECORDS SUMMARY | 2025-05-24 01:12 | XMS_ITS | Clinical Summary ---
Author Organization [facility] Address [address] [place] [address] Care Team Providers Care Mechanical Oxidizer Name Role Phone Unavailable Primary Care Provider Unavailabl e Source Comments [facility],non-owned Affiliates and Associated Physician Practices is amultiple site organization consisting of ambulatory clinics and hospital sitesin [place], [place], [place] and [place]. This disclosure is being madepursuant to the Care Everywhere program and may not contain all information available regarding this patient. Last updated 18.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 Gender Identity Not on file Sexual Orientation [...] 2019 ZOSTER VACCINE (1 of 2) 2019 DEPRESSION SCREENING 07/25/2024 COVID-19 VACCINE (1 - 2023-2 5 season) 2025 INFLUENZA VACCINE (#1) 2025 HIB VACCINE Aged Out No longer eligi ble based on patient's age to complete this topic HPV VACCINE Aged Out No longer eligi ble based on patient's age to complete this topic MENINGOCOCCAL (Group B) VACC INE SHARED DECISION-MAKING Aged Out No longer eligibl e based on patient's age to complete this topic MENINGOCOCCAL GROUPS A/C/Y/W VACCINE Aged Out No longer eligible b ased on patient's age to complete this topic Insurance [address] [facility] Address: [facility] [id number] [place] [address]
[2025-05-24 11:50] VITALS: BP 124/73; PULSE 62; RESP 20; TEMP 36.2; O2SAT 99
[2025-05-24] MEDS: LACTATED RINGERS 1,000 ML 150 ML IV CONT (12:04)
--- NOTE | 2025-05-24 12:09 | P.PNAN_ITS ---
Anes - Initial Pre Proc Eval Procedure: Operation Date: 05/24/25 13:00 Proposed Procedures p Screening Colonoscopy - Myles Van MD Date/Time: 05/24/25 12:09 Surgeon: Myles Van MD Pre Op Diagnosis: Screening Patient Data Age: 55 Gender: M Height: 1.75 m Weight: 81.7 kg Last Vital Signs Temp 97.2 F L 05/24/25 11:50 Pulse 62 05/24/25 11:50 Resp 20 05/24/25 11:50 BP 124/73 05/24/25 11:50 Pulse Ox 99 05/24/25 11:50 O2 Del Method Room Air 05/24/25 11:50 Allergies Allergy/AdvReac Type Severity Reaction Status Date / Time No Known Allergies Allergy Verified 05/24/25 11:49 Home Medications ?Medication ?Instructions ?Recorded ?Confirmed ?Type metoprolol succinate 25 mg 12.5 mg (1/2 x 25 mg) PO DA REGINALDO 30 10/01/24 05/24/25 Rx tablet,extended release 24 hr days #15 tabs pravastatin 10 mg tablet 10 mg PO QHS #90 tabs 05/24/25 Rx rosuvastatin 20 mg tablet 20 mg PO DAILY 05/15/2504/25 History Patient hx anesthesia problems: none Family hx anesthesia problems: none Results Review: All pre-operative results and documents have been reviewed as part of the pre-operative evaluation. [facility] Family History Family History Grandparent Diabetes mellitus Heart attack Cancer Mother Cancer Social History Social History Smoking status: Never smoker Alcohol intake: current Drinks per week: 6 Alcohol use details: Socially on weekends Substance use: never Substance use type: does not use Do You Feel Safe in your Home?: Yes Lack of Transportation: No Lack of Food: Never True Current Housing: I Have Housing Concerned About Future Housing: No Difficulty Paying Gas/Electric Bills: No Difficulty Paying for Meds: No Currently Unemployed: No Education: Bachelor's Degree Difficulty w/ Childcare or Family Care: No Living arrangements: with family 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 Anes - Eval Final PreProcedure Day of Procedure 05/24/25 12:09 Patient weight: normal Lungs: normal air movement Airway: Mallampati scale class II Neurological: alert and oriented Last oral intake: >/= 8 hours ASA classification: II Emergent: no Anesthetic plan: proceed Anesthesia type and monitoring: general GIVS and standard monitoring Results Review: All pre-operative results and documents have been reviewed as part of the pre- operative evaluation. Hyperlipidemia, hx of afib, now on b ej taken this am. Pt active w running 2 miles 4 x weekly, wts, no cp or sob. Informed Consent: The patient's anesthetic plan and its attendant risks and benefits were discussed with the patient/family/POA. Questions were solicited and answers provided to the satisfaction of the patient/family/POA.
--- NOTE | 2025-05-24 13:02 | PM.IMHP ---
H&P: HPI History of Present Illness Date/Time: 05/24/25 13:02 Chief Complaint: Screening colonoscopy Narrative: This is the patient's first colonoscopy. There are no GI symptoms and there is no family history of colorectal cancer. Review of Systems Review of Systems: All systems reviewed & are unremarkable except as noted in HPI and below PMFSH Family History Family History Grandparent Diabetes mellitus Heart attack Cancer Mother Cancer Social History Social History Smoking status: Never smoker Alcohol intake: current Drinks per week: 6 Alcohol use details: Socially on weekends Substance use: never Substance use type: does not use Do You Feel Safe in your Home?: Yes Lack of Transportation: No Lack of Food: Never True Current Housing: I Have Housing Concerned About Future Housing: No Difficulty Paying Gas/Electric Bills: No Difficulty Paying for Meds: No Currently Unemployed: No Education: Bachelor's Degree Difficulty w/ Childcare or Family Care: No Living arrangements: with family 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 Meds Home Medications and Allergies Home Medications ?Medication ?Instructions ?Recorded ?Confirmed ?Type metoprolol succinate 25 mg 12.5 mg (1/2 x 25 mg) PO DAILY 30 10/01/24 05/24/25 Rx tablet,extended release 24 hr days #15 tabs pravastatin 10 mg tablet 10 mg PO QHS #90 tabs 03/29/25 05/24/25 Rx rosuvastatin 20 mg tablet 20 mg PO DAILY 05/15/25 05/15/25 History Allergies Allergy/AdvReac Type Severity Reaction Status Date / Time No Known Allergies Allergy Verified 05/24/25 11:49 Vital Signs Vital Signs - 24 hr 05/24/25 11:50 Temperature 97.2 F L Pulse Rate 62 Respiratory Rate 20 Blood Pressure 124/73 Pulse Oximetry 99 Oxygen Delivery Room Air Exam Const: General: cooperative and healthy appearing Resp: Effort & Inspection: normal respiratory effort and able to speak in complete sentences Auscultation: clear to auscultation bilaterally Cardio: Rate: regular rate Rhythm: regular rhythm GI: Inspection: normal to inspection GI Palp: No No hepatosplenomegaly present Auscultation: normal bowel sounds Rectal Exam: deferred Skin: General skin exam: normal color Psych: Appearance: grossly normal Mental Status: mental status grossly normal Assessment and Plan Assessment and plan (1) Screening for colon cancer: Code(s): Z12.11 - Encounter for screening for malignant neoplasm of colon Status: Acute Assessment and Plan: The patient is deemed a good candidate for the procedure. Consent signed. Will proceed.
[2025-05-24 13:30] VITALS: BP 113/65; PULSE 58; RESP 13; O2SAT 97
[2025-05-24 13:40] VITALS: BP 116/76; PULSE 62; RESP 17; O2SAT 100
[2025-05-24 13:50] VITALS: BP 128/78; PULSE 60; RESP 16; O2SAT 100
== END 2025-05-24 13:39 | disposition home or self-care (01) ==
PROVIDERS: PCP Family Medicine; Referring Provider Family Medicine; Visit Provider Internal Medicine Gastroenterology
PROC: 0DJD8ZZ Inspection of Lower Intestinal Tract, Via Natural or Artificial Opening Endoscopic (ICD-10-PCS; CPT 45378; principal; 2025-05-24 13:00)
DX: Z12.11 Encounter for screening for malignant neoplasm of colon (principal); K57.30 Diverticulosis of large intestine without perforation or abscess without bleeding; E78.5 Hyperlipidemia, unspecified; I48.91 Unspecified atrial fibrillation; Z80.9 Family history of malignant neoplasm, unspecified; Z82.49 Family history of ischemic heart disease and other diseases of the circulatory system
CPT/HCPCS: 45378; J2003; J2704; J7120